=== PATIENT | male | born 1975 | race Caucasian/White ===

== ENCOUNTER 2023-01-12 13:19 | Inpatient (IN) | payer OTHER ==
[~2023-01-12] VITALS: Ht 177.8 cm; Wt 90.3 kg
[2023-01-12 16:00] VITALS: BP 132/87; TEMP 98.1; O2SAT 100
[2023-01-12] MEDS ORDERED: MORP1SYR2 IV (16:10)
[2023-01-12] MEDS ORDERED: [UNRECOGNIZED DRUG - OTHER] IV (16:10)
[2023-01-12] MEDS ORDERED: METF-442 PO (16:10)
[2023-01-12] MEDS ORDERED: SILD20TA PO (16:10)
[2023-01-12] MEDS ORDERED: GLIP10TA11 PO (16:10)
[2023-01-12] MEDS ORDERED: MONT10TA22 PO (16:10)
[2023-01-12] MEDS ORDERED: PANT40VI IV (16:10)
[2023-01-12] MEDS ORDERED: CICL6.1H IH (16:10)
[2023-01-12] MEDS ORDERED: ALBU8.5H8 IH (16:10)
[2023-01-12] MEDS ORDERED: ATOR20TA PO (16:10)
[2023-01-12] MEDS ORDERED: LORA10TA7 PO (16:10)
[2023-01-12] MEDS ORDERED: FLUT16SP16 BNOSTRILS (16:10)
[2023-01-12] MEDS ORDERED: FENO54TA PO (16:10)
[2023-01-12] MEDS ORDERED: ONDA4VIA23 IV (16:10)
[2023-01-12] MEDS ORDERED: ONDANSETRON HCL/PF 4 MG/2 ML VIAL IVP PRN (16:30)
[2023-01-12] MEDS: IV NS 0.9% 1,000 ML IV PRN (16:39)
[2023-01-12] MEDS: MORPHINE SULFATE INJ 2 MG/ML DISP.SYRIN IV PRN (18:00)
[2023-01-12 20:00] VITALS: BP 142/69; TEMP 98.8; O2SAT 100
[2023-01-13] MEDS: MORPHINE SULFATE INJ 2 MG/ML DISP.SYRIN IV PRN (00:26)
[2023-01-13] MEDS: IV NS 0.9% 1,000 ML IV PRN (02:04)
[2023-01-13 04:00] VITALS: BP 129/80; TEMP 98.6; O2SAT 95
[2023-01-13 07:02] LABS: BASOPHILS % (AUTO) 0.3 % (0.0-2.0); EOSINOPHILS # (AUTO) 0.4 K/uL (0.0-0.7); EOSINOPHILS % (AUTO) 4.3 % (0.0-6.0); HEMATOCRIT 40 % (39-51); HEMOGLOBIN 13.8 g/dL (13.5-17.5); LYMPHOCYTES # (AUTO) 1.5 K/uL (0.8-4.8); MEAN CORPUSCULAR HEMOGLOBIN 31 PG (26.0-33.0); MEAN CORPUSCULAR HGB CONC 34 g/dl (31.0-36.0); MEAN CORPUSCULAR VOLUME 90 fL (80-96); MONOCYTES # (AUTO) 0.6 K/uL (0.1-1.30); MONOCYTES % (AUTO) 6.2 % (2.0-12.0); NEUTROPHILS # (AUTO) 7.5 K/uL (1.8-8.9); NEUTROPHILS % (AUTO) 74.2 % (43.0-81.0); PLATELET COUNT (AUTO) 185 K/uL (150-450); RED BLOOD CELL COUNT(AUTO) 4.48 MIL/uL (4.5-6.0); RED CELL DISTRIBUTION WIDTH 13.1 % (11.5-15.0); WHITE BLOOD COUNT (AUTO) 10.2 K/uL (4.3-11.0)
[2023-01-13 07:18] LABS: ALBUMIN 3.3 g/dL (3.4-5.0); BILIRUBIN,TOTAL 1.3 mg/dL (0.2-1.0); CREATININE 0.7 mg/dL (0.6-1.3); MAGNESIUM 1.8 mg/dL (1.8-2.4); PHOSPHORUS 2.5 mg/dL (2.5-4.9); POTASSIUM 3.7 mmol/L (3.5-5.1); TOTAL PROTEIN, SERUM 7.1 g/dL (6.4-8.2)
[2023-01-13 08:00] VITALS: BP 132/81; TEMP 99; O2SAT 95
[2023-01-13 16:00] VITALS: BP 122/78; TEMP 98.4; O2SAT 98
== END 2023-01-13 16:19 | DRG 282 ==
LOC: MEDSG1 15:33
DX: K85.20 Alcohol induced acute pancreatitis without necrosis or infection (principal); E11.9 Type 2 diabetes mellitus without complications; J45.909 Unspecified asthma, uncomplicated; Y90.9 Presence of alcohol in blood, level not specified; Z79.51 Long term (current) use of inhaled steroids; Z79.84 Long term (current) use of oral hypoglycemic drugs; Z79.899 Other long term (current) drug therapy
CPT/HCPCS: 36415; 80053-TC; 80061-TC; 82962-TC; 83690-TC; 83735-TC; 84100-TC; 85025-TC; A4223; G0378; J2270; J7030